=== PATIENT | male | born 1970 | race Caucasian/White ===

== ENCOUNTER → 2018-05-27 | Outpatient (CLI) | payer BC ==
--- NOTE | 2018-05-27 13:55 | US ---
EXAMINATION TYPE: US scrotum with doppler. Grayscale and color Doppler Duplex imaging performed of t aden scrotum. DATE OF EXAM: 05/27/2018 COMPARISON: NONE CLINICAL HISTORY: N44.00 Torsion of testis, unspecified. Left scrotal pain x 3 days without trauma EXAM MEASUREMENTS: TESTICLES: Right Testicle: 4.8 x 3.8 x 2.8 cm Left Testicle: 5.6 x 3.3 x 3.2 cm EPIDIDYMIS HEAD: Right Epididymis: 1.7 x1.1 x 1.0 cm Left Epididymis: 1.3 x 1.0 x 1.3 cm Doppler performed to assess for testicular vascularity; good bilateral color flow and waveforms are s een. There is no evidence of testicular torsion. Presence of hydroceles: in right scrotal sac = 3.3 x 0.7 x 1.0cm and in left scrotal sac = 3.9 x 1.6 x 1.1cm. Presence of varicoceles: no Tech findings called to Dr Mariella Chamorro at exam's end. IMPRESSION: 1. Bilateral hydroceles left greater than right.
== END ==
LOC: RADUSWWP 12:58
PROVIDERS: ATTEND Family Medicine
DX: N43.3 Hydrocele, unspecified (principal)
CPT/HCPCS: 76870; 93975

== ENCOUNTER 2020-06-22 12:37 | Observation (INO) | payer BC ==
--- NOTE | 2020-06-22 13:09 | ED ---
Chest Pain HPI - General Chief Complaint: Chest Pain Stated Complaint: chest pain Time Seen by Provider: 06/22/20 12:54 Source: patient, RN notes reviewed, old records reviewed Mode of arrival: ambulatory Limitations: no limitations - History of Present Illness Initial Comments: This is a 50-year-old male DF for evaluation presented today for evaluation regards to chest pain. No medical history no surgical history no travel history. Patient has no fevers cough or congestion. Chest pain started today patient was chest works midnight chest pain started when he went after he went to bed, was epigastric burning type pain. MD Complaint: chest pain -: hour(s) Onset: during rest, awoke with symptoms Pain Location: substernal Pain Radiation: none Severity: moderate Severity scale (1-10): 4 Quality: tightness Consistency: constant Improves With: nothing Worsens With: nothing Anginal Symptoms: nausea Other Symptoms: burping Treatments Prior to Arrival: none - Related Data Home Medications Medication Instructions Recorded Confirmed valACYclovir HCL 1,000 mg PO DAILY 06/22/20 06/22/20 Allergies Allergy/AdvReac Type Severity Reaction Status Date / Time No Known Allergies Allergy Verified 06/22/20 13:28 Review of Systems ROS Statement: Those systems with pertinent positive or pertinent negative responses have been documented in the HPI. ROS Other: All systems not noted in ROS Statement are negative. EKG Findings - EKG Comments: EKG Findings:: EKG shows sinus a rate of 68, NC 146 QRS 78 QTc 380 Past Medical History Past Medical History: No Reported History History of Any Multi-Drug Resistant Organisms: None Reported Past Surgical History: No Surgical Hx Reported Past Psychological History: No Psychological Hx Reported Smoking Status: Never smoker Past Alcohol Use History: None Reported General Exam Limitations: no limitations General appearance: alert, in no apparent distress Head exam: Present: atraumatic, normocephalic, normal inspection Eye exam: Present: normal appearance, PERRL, EOMI. Absent: scleral icterus, conjunctival injection, periorbital swelling ENT exam: Present: normal exam, mucous membranes moist Neck exam: Present: normal inspection. Absent: tenderness, meningismus, lymphadenopathy Respiratory exam: Present: normal lung sounds bilaterally. Absent: respiratory distress, wheezes, rales, rhonchi, stridor Cardiovascular Exam: Present: regular rate, normal rhythm, normal heart sounds. Absent: systolic murmur, diastolic murmur, rubs, gallop, clicks GI/Abdominal exam: Present: soft, normal bowel sounds. Absent: distended, tenderness, guarding, rebound, rigid Extremities exam: Present: normal inspection, full ROM, normal capillary refill. Absent: tenderness, pedal edema, joint swelling, calf tenderness Back exam: Present: normal inspection Neurological exam: Present: alert, oriented X3, CN II-XII intact Psychiatric exam: Present: normal affect, normal mood Skin exam: Present: warm, dry, intact, normal color. Absent: rash Course Vital Signs 06/22/20 06/22/20 06/22/20 12:44 12:54 13:00 Temperature 98.2 F Pulse Rate 74 65 75 Respiratory 20 15 15 Rate Blood Pressure 168/102 174/114 O2 Sat by Pulse 97 97 97 Oximetry 06/22/20 06/22/20 13:30 14:00 Temperature Pulse Rate 73 70 Respiratory 15 15 Rate Blood Pressure 160/117 166/110 O2 Sat by Pulse 97 97 Oximetry - Reevaluation(s) Reevaluation #1: 06/22/20 13:19 Medical records reviewed Reevaluation #2: 06/22/20 14:50 Patient has multiple EKGs done here in the ER with no change Reevaluation #3: 06/22/20 14:50 Patient does have persistent chest pain, blood pressures treated here in the ER Reevaluation #4: 06/22/20 14:50 Spoke patient regarding findings, questions answered - Consultations Consultation #1: Spoke with [facility] to admit patient he did see patient here in the ER Chest Pain MDM - MDM 50 male positive chest pain, has persistent chest pain here in the ER with elevated blood pressure. Patient be admitted for chest pain observation Critical Care Time Critical Care Time: Yes Total Critical Care Time: 31 Disposition Clinical Impression: Chest pain, Hypertension Disposition: ADMITTED IP TO THIS HOSP Condition: Fair Is patient prescribed a controlled substance at d/c from ED?: No Referrals: Mariella Chamorro DO [Primary Care Provider] - 1-2 days
[2020-06-22] MEDS ORDERED: SODIUM CHLORIDE 0.9% 1,000 ML IV STA ×2 (13:31)
[2020-06-22 13:35] LABS: Basophils # (A) 0.1 k/uL (0-0.2); Basophils % (A) 1 %; Eosinophils # (A) 0.4 k/uL (0-0.7); Eosinophils % (A) 4 %; HCT 52.2 % (39.0-53.0); HGB 17.3 gm/dL (13.0-17.5); Lymphocytes # (A) 2.7 k/uL (1.0-4.8); Lymphocytes % (A) 26 %; MCHC 33.1 g/dL (31.0-37.0); MCV 90.5 fL (80.0-100.0); Monocytes # (A) 0.6 k/uL (0-1.0); Monocytes % (A) 6 %; Neutrophils # (A) 6.3 k/uL (1.3-7.7); Neutrophils % (A) 61 %; Platelet Count 215 k/uL (150-450); RBC 5.76 m/uL (4.30-5.90); WBC 10.3 k/uL (3.8-10.6)
[2020-06-22 13:41] LABS: INR 0.9 (<1.2); Partial Thromboplastin Time 23.3 sec (22.0-30.0); Prothrombin Time 9.6 sec (9.0-12.0)
[2020-06-22 13:43] LABS: ALT 46 U/L (4-49); AST 36 U/L (17-59); African American GFR (CKD) >90 (>60 ml/min/1.73 sqM); Albumin 4.7 g/dL (3.5-5.0); Alkaline Phosphatase 101 U/L (38-126); Anion Gap 9 mmol/L; Blood Urea Nitrogen 19 mg/dL (9-20); Carbon Dioxide 22 mmol/L (22-30); Chloride 108 mmol/L (98-107); Glucose 125 mg/dL (74-99); Magnesium 2.1 mg/dL (1.6-2.3); Non-African American GFR(CKD) 84 (>60 ml/min/1.73 sqM); Potassium 4.8 mmol/L (3.5-5.1); Sodium 139 mmol/L (137-145); Total Bilirubin 0.6 mg/dL (0.2-1.3); Total Protein 7.6 g/dL (6.3-8.2)
--- NOTE | 2020-06-22 14:26 | CT ---
EXAMINATION TYPE: CT angio chest DATE OF EXAM: 06/22/2020 COMPARISON: None HISTORY: Epigastric pain with shortness of breath. CT DLP: 320.7 mGycm Automated exposure control for dose reduction was used. CONTRAST: Performed with IV Contrast, patient injected with 100 mL of Isovue 370. There are 3-D post processed images. There is some mild interstitial density and subsegmental atelectasis at the lung bases. There is no p ulmonary consolidation. Heart is borderline enlarged. There is no pericardial effusion. There is no p leural effusion. There are no hilar masses. There is no mediastinal adenopathy. Thoracic aorta is intact. There is no aneurysm. There is normal contrast opacification of the pulmonary arteries. There are no filling defects. There are bilateral bronchial lymph nodes measuring up to 1 cm. Thoracic vertebra have normal spacing and alignment. There is no compression fracture. Sternum is int act. Upper abdominal soft tissues are intact. IMPRESSION: No evidence of pulmonary embolism. Minimal subsegmental atelectasis and interstitial density at the lung bases.
[2020-06-22] MEDS ORDERED: LABETALOL 5 MG/ML VIAL MDV IVP STA (14:27)
--- NOTE | 2020-06-22 14:36 | CT ---
EXAMINATION TYPE: CT abdomen pelvis w con DATE OF EXAM: 06/22/2020 COMPARISON: HISTORY: Epigastric pain with shortness of breath. CT DLP: 992.5 mGycm Automated exposure control for dose reduction was used. CONTRAST: Performed with IV Contrast, patient injected with 100 mL of Isovue 370. There is mild subsegmental atelectasis at the lung bases. Heart is normal. There is no pericardial ef fusion. There is no pleural effusion. Liver spleen stomach pancreas gallbladder are intact. There is a single large calcified gallstone. This is at the gallbladder neck. Gallbladder is large and measure s 9.2 cm in length. There is no adrenal mass. Kidneys show satisfactory contrast opacification. There is no hydronephrosi s. Ureters are not dilated. There is 3 mm calculus posterior right kidney. Delayed images show normal renal excretion. There are small left renal parapelvic cysts. There is no retroperitoneal adenopathy . Bladder distends smoothly. There is 5.3 cm prostate. There is no mesenteric edema. There is no asci santos or free air. There is no bowel obstruction. Appendix is partly filled with air and appears normal . Lumbar vertebra have normal alignment. Bony pelvis is intact. Hip joints are intact. IMPRESSION: Large gallbladder with single large gallstone at the gallbladder neck. Cholecystitis is possible. Nor mal appendix. Nonobstructing right renal calculus.
[2020-06-22] MEDS ORDERED: NITROGLYCERIN SL TABS 0.4 MG TAB SUBLINGUAL PRN (14:44)
[2020-06-22] MEDS ORDERED: ASPIRIN 81 MG PO STA (14:44)
[2020-06-22] MEDS ORDERED: MORPHINE SULFATE 4 MG/ML SYRINGE IVP STA (14:53)
[2020-06-22] MEDS: SODIUM CHLORIDE 0.9% 1,000 ML IV SCH (15:01)
[2020-06-22] MEDS: METOPROLOL TARTRATE 50 MG TAB PO SCH (20:18)
[2020-06-22] MEDS: MORPHINE SULFATE 4 MG/ML SYRINGE IVP PRN (20:20)
--- NOTE | 2020-06-22 21:12 | P.HPIM ---
History of Present Illness this is a pleasant 50 years old male with no significant past medical history. 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 Pain felt to be central and upper stomach about 6-7/10 in severity nonradiating, felt like pressure. With no associated dyspnea or coughing or palpitation or dizziness. No vomiting or change in bowel habits or urine habits. No fever. Patient denies history of smoking, alcohol or illicit drugs. Review of Systems CONSTITUTIONAL: No fever, no malaise, no fatigue. HEENT: No recent visual problems or hearing problems. Denied any sore throat. CARDIOVASCULAR: No orthopnea, PND, no palpitations, no syncope. PULMONARY: No shortness of breath, no cough, no hemoptysis. GASTROINTESTINAL: No diarrhea, Normoactive bowel sounds. NEUROLOGICAL: No headaches, no weakness, no numbness. HEMATOLOGICAL: Denies any bleeding or petechiae. GENITOURINARY: Denies any burning micturition, frequency, or urgency. MUSCULOSKELETAL/RHEUMATOLOGICAL: Denies any joint pain, swelling, or any muscle pain. ENDOCRINE: Denies any polyuria or polydipsia. Past Medical History Past Medical History: No Reported History History of Any Multi-Drug Resistant Organisms: None Reported Past Surgical History: No Surgical Hx Reported Past Anesthesia/Blood Transfusion Reactions: No Reported Reaction Past Psychological History: No Psychological Hx Reported Smoking Status: Never smoker Past Alcohol Use History: None Reported - Past Family History Father Family Medical History: Cancer Additional Family Medical History / Comment(s): lung CA from smoking Mother Family Medical History: No Reported History Medications and Allergies Home Medications Medication Instructions Recorded Confirmed Type valACYclovir HCL 1,000 mg PO DAILY 06/22/20 06/22/20 History Allergies Allergy/AdvReac Type Severity Reaction Status Date / Time No Known Allergies Allergy Verified 06/22/20 13:28 Physical Exam Vitals: Vital Signs Temp Pulse Pulse Resp BP BP Pulse Ox 06/22/20 16:00 97.3 F L 66 20 135/93 99 06/22/20 15:48 146/99 06/22/20 15:01 152/100 06/22/20 14:47 65 18 151/99 98 06/22/20 14:00 70 15 166/110 97 06/22/20 13:30 73 15 160/117 97 06/22/20 13:00 75 15 174/114 97 06/22/20 12:54 65 15 97 06/22/20 12:44 98.2 F 74 20 168/102 97 Intake and Output 06/22/20 06/22/20 06/22/20 06:59 14:59 22:59 Intake Total 120 Balance 120 Intake: Oral 120 Other: # Voids 1 Weight 81.647 kg 81.647 kg GENERAL: The patient is alert and oriented x3, not in any acute distress. Well developed, well nourished. HEENT: Pupils are round and equally reacting to light. EOMI. No scleral icterus. No conjunctival pallor. Normocephalic, atraumatic. No pharyngeal erythema. No thyromegaly. CARDIOVASCULAR: S1 and S2 present. No murmurs, rubs, or gallops. PULMONARY: Chest is clear to auscultation, no wheezing or crackles. -ABDOMEN: Soft, epigastric tenderness, nondistended, normoactive bowel sounds. No palpable organomegaly. MUSCULOSKELETAL: No joint swelling or deformity. EXTREMITIES: No cyanosis, clubbing, or pedal edema. NEUROLOGICAL: Gross neurological examination did not reveal any focal deficits. SKIN: No rashes. No petechiae Results CBC & Chem 7: 06/22/20 13:18 06/22/20 13:18 Labs: Abnormal Lab Results - Last 24 Hours (Table) 06/22/20 Range/Units 13:18 Chloride 108 H (98-107) mmol/L Glucose 125 H (74-99) mg/dL Thrombosis Risk Factor Assmnt - Choose All That Apply Each Factor Represents 1 point: Age 41-60 years Other congenital or acquired thrombophilia - If yes, enter type in comment: No Thrombosis Risk Factor Assessment Total Risk Factor Score: 1 Thrombosis Risk Factor Assessment Level: Low Risk Assessment and Plan Assessment: Chest pain, rule out cardiac causes Gallstones with a large gallbladder 9.2 cm suspicious for cholecystitis Plan: This is a pleasant 50 years old male who presents because of chest pain. We'll do serial troponins. Cardiology consult. Continue with aspirin. Check ultrasound of the liver and call surgical consult. Keep the patient nothing by mouth with pain medication and IV fluids Labs and medication were reviewed.. Continue same treatment. Continue with symptomatic treatment. Resume home medication. Monitor lytes and vitals. DVT and GI prophylaxis. Further recommendations depends on the clinical course of the patient DVT prophylaxis: Subcutaneous heparin GI Prophylaxis: Ppi
[2020-06-22] MEDS: PANTOPRAZOLE 40 MG/10 ML VIAL IVP SCH (22:53)
[2020-06-23 07:25] LABS: Cholesterol 180 mg/dL (<200); HDL Cholesterol 49 mg/dL (40-60); LDL Cholesterol,Calculated 99 mg/dL (0-99); Triglycerides 162 mg/dL (<150)
--- NOTE | 2020-06-23 08:11 | P.GSCN ---
History of Present Illness Consult date: 06/23/20 Reason for Consult: Gallstones History of present illness: This a 50-year-old male who is admitted to the hospital for complete table chest pain. Patient was found have a large gallstone and CAT scan within his gallbladder. Patient's had complaints of intermittent epigastric right upper quadrant pain. Past Medical History Past Medical History: No Reported History History of Any Multi-Drug Resistant Organisms: None Reported Past Surgical History: No Surgical Hx Reported Past Anesthesia/Blood Transfusion Reactions: No Reported Reaction Past Psychological History: No Psychological Hx Reported Smoking Status: Never smoker Past Alcohol Use History: None Reported - Past Family History Father Family Medical History: Cancer Additional Family Medical History / Comment(s): lung CA from smoking Mother Family Medical History: No Reported History Medications and Allergies Home Medications Medication Instructions Recorded Confirmed Type valACYclovir HCL 1,000 mg PO DAILY 06/22/20 06/22/20 History Allergies Allergy/AdvReac Type Severity Reaction Status Date / Time No Known Allergies Allergy Verified 06/22/20 13:28 Surgical - Exam Vital Signs Temp Pulse Resp BP Pulse Ox 98.2 F 74 20 168/102 97 06/22/20 12:44 06/22/20 12:44 06/22/20 12:44 06/22/20 12:44 06/22/20 12:44 - General well developed, well nourished, no distress - Eyes PERRL - ENT normal pinna - Neck no masses - Respiratory normal expansion - Cardiovascular Rhythm: regular - Abdomen Abdomen: soft, non tender Results - Labs 06/22/20 13:18 06/22/20 13:18 Abnormal Lab Results - Last 24 Hours (Table) 06/22/20 06/23/20 Range/Units 13:18 06:18 Chloride 108 H (98-107) mmol/L Glucose 125 H (74-99) mg/dL Triglycerides 162 H (<150) mg/dL Diabetes panel 06/22/20 06/23/20 Range/Units 13:18 06:18 Sodium 139 (137-145) mmol/L Potassium 4.8 (3.5-5.1) mmol/L Chloride 108 H (98-107) mmol/L Carbon Dioxide 22 (22-30) mmol/L BUN 19 (9-20) mg/dL Creatinine 1.05 (0.66-1.25) mg/dL Glucose 125 H (74-99) mg/dL Calcium 10.0 (8.4-10.2) mg/dL AST 36 (17-59) U/L ALT 46 (4-49) U/L Alkaline Phosphatase 101 (38-126) U/L Total Protein 7.6 (6.3-8.2) g/dL Albumin 4.7 (3.5-5.0) g/dL Triglycerides 162 H (<150) mg/dL HDL Cholesterol 49 (40-60) mg/dL Calcium panel 06/22/20 Range/Units 13:18 Calcium 10.0 (8.4-10.2) mg/dL Albumin 4.7 (3.5-5.0) g/dL Pituitary panel 06/22/20 Range/Units 13:18 Sodium 139 (137-145) mmol/L Potassium 4.8 (3.5-5.1) mmol/L Chloride 108 H (98-107) mmol/L Carbon Dioxide 22 (22-30) mmol/L BUN 19 (9-20) mg/dL Creatinine 1.05 (0.66-1.25) mg/dL Glucose 125 H (74-99) mg/dL Calcium 10.0 (8.4-10.2) mg/dL Adrenal panel 06/22/20 Range/Units 13:18 Sodium 139 (137-145) mmol/L Potassium 4.8 (3.5-5.1) mmol/L Chloride 108 H (98-107) mmol/L Carbon Dioxide 22 (22-30) mmol/L BUN 19 (9-20) mg/dL Creatinine 1.05 (0.66-1.25) mg/dL Glucose 125 H (74-99) mg/dL Calcium 10.0 (8.4-10.2) mg/dL Total Bilirubin 0.6 (0.2-1.3) mg/dL AST 36 (17-59) U/L ALT 46 (4-49) U/L Alkaline Phosphatase 101 (38-126) U/L Total Protein 7.6 (6.3-8.2) g/dL Albumin 4.7 (3.5-5.0) g/dL Assessment and Plan Assessment: Symptomatically lithiasis. Patient was scheduled for laparoscopic cholecystectomy in the morning.
[2020-06-23] MEDS ORDERED: ASPIRIN 325 MG TAB PO SCH (09:00)
[2020-06-23] MEDS: HEPARIN SODIUM,PORCINE 5,000 UNIT/ML 1 ML VIAL SQ SCH ×2 (09:31→21:25)
[2020-06-23] MEDS: METOPROLOL TARTRATE 50 MG TAB PO SCH (09:31)
[2020-06-23] MEDS: PANTOPRAZOLE 40 MG/10 ML VIAL IVP SCH (09:31)
[2020-06-23] MEDS: MORPHINE SULFATE 4 MG/ML SYRINGE IVP PRN (09:40)
--- NOTE | 2020-06-23 10:26 | US ---
EXAMINATION TYPE: US liver DATE OF EXAM: 06/23/2020 COMPARISON: Correlation CT 06/22/2020 CLINICAL HISTORY: 50-year-old male with chest pain and abnormal CT, rule out cholecystitis . TECHNIQUE: Multiple sonographic images of the right upper quadrant are obtained. FINDINGS: EXAM MEASUREMENTS: Liver Length: 14.8 cm Gallbladder Wall: 0.2 cm CBD: 0.3 cm Right Kidney: 10.4 x 4.8 x 4.4 cm Pancreas: wnl, tail obscured by overlying bowel gas Liver: Visualized portions appeared wnl . Homogeneous appearance. Gallbladder: Distended to the upper limits of normal at 3.7 cm wide. Single, mobile gallstone= 2.0 c m, wall not thickened. No surrounding fluid. Evidence for sonographic Marrufo's sign: No CBD: wnl Right Kidney: wnl, lower pole gassed out IMPRESSION: 1. A 2.0 cm gallstone. No ancillary findings of acute cholecystitis at this time though the gallbladd er is distended to the upper limits of normal at 3.7 cm wide, probably due to fasting state. 2. No biliary ductal dilatation.
--- NOTE | 2020-06-23 10:44 | P.PN ---
Subjective this is a pleasant 50 years old male with no significant past medical history. 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 Pain felt to be central and upper stomach about 6-7/10 in severity nonradiating, felt like pressure. With no associated dyspnea or coughing or palpitation or dizziness. No vomiting or change in bowel habits or urine habits. No fever. Patient denies history of smoking, alcohol or illicit drugs. Vital signs stable. Labs include a CBC, BMP, liver enzymes, INR are unremarkable. Troponins 3 less than 0.012. Chest x-ray: No acute process. EKG showing normal sinus rhythm at [address] with no significant ST-T changes. CTA of the chest showing no pulmonary embolism, atelectasis. CT of the abdomen and pelvis with contrast: Single calcified gallstones and a large gallbladder attack 0.2 cm. 06/23/2020 Patient is awake and alert. He still have pain in the epigastric and xiphisternal area. Most likely is due to gallbladder disease rather than his heart. Cartilage team on the case Surgery team are planning for cholecystectomy tomorrow. LIKE patient is agreeable. Vitals and labs reviewed and it looks stable Objective - Vital Signs Vital signs: Vital Signs Temp 98.0 F 06/23/20 05:04 Pulse 77 06/23/20 05:04 Resp 18 06/23/20 05:04 BP 112/62 06/23/20 05:04 Pulse Ox 95 06/23/20 05:04 Intake & Output 06/22/20 06/23/20 06/23/20 18:59 06:59 18:59 Intake Total 120 540 Balance 120 540 Weight 81.647 kg 83 kg Intake: Oral 120 540 Other: Voiding Method Toilet # Voids 1 1 1 - Exam GENERAL: The patient is alert and oriented x3, not in any acute distress. Well developed, well nourished. HEENT: Pupils are round and equally reacting to light. EOMI. No scleral icterus. No conjunctival pallor. Normocephalic, atraumatic. No pharyngeal erythema. No th yromegaly. CARDIOVASCULAR: S1 and S2 present. No murmurs, rubs, or gallops. PULMONARY: Chest is clear to auscultation, no wheezing or crackles. -ABDOMEN: Soft, epigastric tenderness, nondistended, normoactive bowel sounds. No palpable organomegaly. MUSCULOSKELETAL: No joint swelling or deformity. EXTREMITIES: No cyanosis, clubbing, or pedal edema. NEUROLOGICAL: Gross neurological examination did not reveal any focal deficits. SKIN: No rashes. no petechiae. - Labs CBC & Chem 7: 06/22/20 13:18 06/22/20 13:18 Labs: Abnormal Lab Results - Last 24 Hours (Table) 06/22/20 06/23/20 Range/Units 13:18 06:18 Chloride 108 H (98-107) mmol/L Glucose 125 H (74-99) mg/dL Triglycerides 162 H (<150) mg/dL Assessment and Plan Assessment: Chest pain, mostly its epigastric pain ,very close to the xiphisternal joint, related to gall bladder disease Gallstones with a large gallbladder 9.2 cm suspicious for cholecystitis Plan: This is a pleasant 50 years old male who presents because of chest pain. We'll do serial troponins. Cardiology consult. Surgery team are planning for cholecystectomy. Continue with IV fluids Labs and medication were reviewed.. Continue same treatment. Continue with symptomatic treatment. Resume home medication. Monitor lytes and vitals. DVT and GI prophylaxis. Further recommendations depends on the clinical course of the patient DVT prophylaxis: Subcutaneous heparin GI Prophylaxis: Ppi
--- NOTE | 2020-06-23 14:02 | P.CRDCN ---
History of Present Illness History of present illness: HISTORY OF PRESENTING ILLNESS This is a pleasant 50-year-old male with no significant past medical history. We have been asked to see in consultation for chest pain. 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 He was woken up around 11:30 with an intense burning sensation in the midsternal epigastric region. The discomfort was quite intense. He took Rolaids as he felt this was a reflex reaction however he got no relief. The pain was persistent throughout the day yesterday. There was no radiation to the back, arm, neck or jaw. He denied associated shortness of breath, dizziness, palpitations, nausea, vomiting or diaphoresis. EKG reveals sinus mechanism with no acute ST or T-wave abnormalities 3. CTA is negative for pulmonary embolism, lungs are clear and normal appearing aorta. CT of the abdomen and pelvis revealed a single large gallstone. He has been seen by surgery and is scheduled to undergo cholecystectomy tomorrow. Laboratory data reviewed, cardiac enzymes negative 3, LDL 99, sodium 139, potassium 4.8, creatinine 1.05, magnesium 2.1 and CBC unremarkable. He currently takes no daily medications. Of note the patient exercises on his elliptical for 20 minutes every day and denies ever having had exertional chest pain or shortness of breath. REVIEW OF SYSTEMS At the time of my exam: CONSTITUTIONAL: Denies fever or chills. CARDIOVASCULAR: Denies chest pain, shortness of breath, orthopnea, PND or palpitations. RESPIRATORY: Denies cough. GASTROINTESTINAL: Denies abdominal pain, diarrhea, constipation, nausea or vomiting. MUSCULOSKELETAL: Denies myalgias. NEUROLOGIC: Denies numbness, tingling or weakness. ENDOCRINE: Denies fatigue, weight change, polydipsia or polyurina. GENITOURINARY: Denies burning, hematuria or urgency with micturation. HEMATOLOGIC: Denies history of anemia or bleeding. PHYSICAL EXAMINATION Blood pressure 121/80 heart rate 78 afebrile and maintaining oxygen saturation on room air. CONSTITUTIONAL: No apparent distress. HEENT: Head is normocephalic. Pupils are equal, round. Sclerae anicteric. Mucous membranes of the mouth are moist. No JVD. No carotid bruit. CHEST EXAMINATION: Lungs are clear to auscultation. No chest wall tenderness is noted on palpation or with deep breathing. HEART EXAMINATION: Regular rate and rhythm. S1, S2 heard. No murmurs, gallops or rub. ABDOMEN: Soft, nontender. Positive bowel sounds. EXTREMITIES: 2+ peripheral pulses, no lower extremity edema and no calf tenderness. NEUROLOGIC EXAMINATION: Patient is awake, alert and oriented x3. ASSESSMENT Chest pain, atypical for angina. PLAN An acute coronary event has been ruled out. Recommend proceeding with stress echocardiogram to assess her stress induced cardiac ischemia. If stress test is normal and there are no contraindications undergo surgical intervention tomorrow. Thank you kindly for this consultation. Nurse Practitioner note has been reviewed, I agree with a documented findings and plan of care. Patient was seen and examined. Past Medical History Past Medical History: No Reported History History of Any Multi-Drug Resistant Organisms: None Reported Past Surgical History: No Surgical Hx Reported Past Anesthesia/Blood Transfusion Reactions: No Reported Reaction Past Psychological History: No Psychological Hx Reported Smoking Status: Never smoker Past Alcohol Use History: None Reported - Past Family History Father Family Medical History: Cancer Additional Family Medical History / Comment(s): lung CA from smoking Mother Family Medical History: No Reported History Medications and Allergies Home Medications Medication Instructions Recorded Confirmed Type valACYclovir HCL 1,000 mg PO DAILY 06/22/20 06/22/20 History Allergies Allergy/AdvReac Type Severity Reaction Status Date / Time No Known Allergies Allergy Verified 06/22/20 13:28 Physical Exam Vitals: Vital Signs Temp Pulse Pulse Resp BP BP Pulse Ox 06/23/20 05:04 98.0 F 77 18 112/62 95 06/22/20 23:56 98.1 F 66 18 107/63 96 06/22/20 19:50 98.0 F 78 18 122/78 97 06/22/20 16:00 97.3 F L 66 20 135/93 99 06/22/20 15:48 146/99 06/22/20 15:01 152/100 06/22/20 14:47 65 18 151/99 98 06/22/20 14:00 70 15 166/110 97 06/22/20 13:30 73 15 160/117 97 06/22/20 13:00 75 15 174/114 97 06/22/20 12:54 65 15 97 06/22/20 12:44 98.2 F 74 20 168/102 97 Intake and Output 06/22/20 06/23/20 06/23/20 22:59 06:59 14:59 Intake Total 120 540 Balance 120 540 Intake: Oral 120 540 Other: Voiding Method Toilet Toilet # Voids 1 1 1 Weight 81.647 kg 83 kg Results 06/22/20 13:18 06/22/20 13:18 Cardiac Enzymes 06/22/20 06/22/20 06/22/20 Range/Units 13:18 13:18 16:28 AST 36 (17-59) U/L Troponin I <0.012 <0.012 (0.000-0.034) ng/mL 06/22/20 Range/Units 18:58 AST (17-59) U/L Troponin I <0.012 (0.000-0.034) ng/mL Coagulation 06/22/20 Range/Units 13:18 PT 9.6 (9.0-12.0) sec APTT 23.3 (22.0-30.0) sec Lipids 06/23/20 Range/Units 06:18 Triglycerides 162 H (<150) mg/dL Cholesterol 180 (<200) mg/dL HDL Cholesterol 49 (40-60) mg/dL CBC 06/22/20 Range/Units 13:18 WBC 10.3 (3.8-10.6) k/uL RBC 5.76 (4.30-5.90) m/uL Hgb 17.3 (13.0-17.5) gm/dL Hct 52.2 (39.0-53.0) % Plt Count 215 (150-450) k/uL Comprehensive Metabolic Panel 06/22/20 Range/Units 13:18 Sodium 139 (137-145) mmol/L Potassium 4.8 (3.5-5.1) mmol/L Chloride 108 H (98-107) mmol/L Carbon Dioxide 22 (22-30) mmol/L BUN 19 (9-20) mg/dL Creatinine 1.05 (0.66-1.25) mg/dL Glucose 125 H (74-99) mg/dL Calcium 10.0 (8.4-10.2) mg/dL AST 36 (17-59) U/L ALT 46 (4-49) U/L Alkaline Phosphatase 101 (38-126) U/L Total Protein 7.6 (6.3-8.2) g/dL Albumin 4.7 (3.5-5.0) g/dL Current Medications Generic Name Dose Route Start Last Admin Trade Name Adiq PRN Reason Stop Dose Admin Aspirin 325 mg 06/23/20 09:00 Aspirin 325 Mg Tab PO DAILY ALFREDO Heparin Sodium (Porcine) 5,000 unit 06/23/20 09:00 Heparin Sodium,Porcine 5,000 Unit/Ml 1 Ml Vial SQ Q12HR ALFREDO Sodium Chloride 1,000 mls @ 75 mls/hr 06/22/20 14:45 06/22/20 15:01 Saline 0.9% IV 20 mls/hr .[id number] ALFREDO Administration Metoprolol Tartrate 50 mg 06/22/20 21:00 06/22/20 20:18 Metoprolol Tartrate 50 Mg Tab PO 50 mg BID ALFREDO Administration Morphine Sulfate 4 mg 06/22/20 14:53 06/22/20 20:20 Morphine Sulfate 4 Mg/Ml Syringe IVP 4 mg Q4HR PRN Administration Pain Nitroglycerin 0.4 mg 06/22/20 14:44 Nitroglycerin Sl Tabs 0.4 Mg Tab SUBLINGUAL Q5M PRN Chest Pain Pantoprazole Sodium 40 mg 06/22/20 21:15 06/22/20 22:53 Pantoprazole 40 Mg/10 Ml Vial IVP Not Given DAILY ALFREDO Intake and Output 06/22/20 06/23/20 06/23/20 22:59 06:59 14:59 Intake Total 120 540 Balance 120 540 Intake: Oral 120 540 Other: Voiding Method Toilet Toilet # Voids 1 1 1 Weight 81.647 kg 83 kg 06/22/20 13:18 06/22/20 13:18
[2020-06-23] MEDS: SODIUM CHLORIDE 0.9% 1,000 ML IV SCH (14:13)
[2020-06-24] MEDS: SODIUM CHLORIDE 0.9% 1,000 ML IV SCH ×2 (07:04→17:18)
[2020-06-24] MEDS ORDERED: ASPIRIN 81 MG PO SCH (09:00)
[2020-06-24] MEDS ORDERED: LACTATED RINGERS 1,000 ML IV ONE (10:09)
[2020-06-24] MEDS ORDERED: ONDANSETRON 4 MG/2 ML VIAL ONE (10:16)
[2020-06-24] MEDS: HEPARIN SODIUM,PORCINE 5,000 UNIT/ML 1 ML VIAL SQ SCH (10:18)
[2020-06-24] MEDS: PANTOPRAZOLE 40 MG/10 ML VIAL IVP SCH (10:42)
[2020-06-24] MEDS ORDERED: fentaNYL (PF) 50 MCG/ML 2 ML AMP ONE (11:23)
[2020-06-24] MEDS ORDERED: HYDROmorphone (PF) 1 MG/ML ONE (11:23)
[2020-06-24] MEDS ORDERED: PROPOFOL 10 MG/ML 20 ML VIAL IV ONE (11:23)
[2020-06-24] MEDS ORDERED: NEOSTIGMINE 1 MG/ML 10 ML VIAL ONE (11:23)
[2020-06-24] MEDS ORDERED: KETOROLAC 15 MG/ML 1 ML VIAL ONE (11:23)
[2020-06-24] MEDS ORDERED: GLYCOPYRROLATE 0.2 MG/ML 2 ML VIAL ONE (11:23)
[2020-06-24] MEDS ORDERED: SUCCINYLCHOLINE CHLORIDE 100 MG/5 ML SYR IV ONE (11:23)
[2020-06-24] MEDS ORDERED: MIDAZOLAM 2 MG/2 ML VIAL ONE (11:23)
[2020-06-24] MEDS ORDERED: ROCURONIUM 10 MG/ML (10 ML VIAL) IV ONE (11:23)
[2020-06-24] MEDS ORDERED: BUPIVACAINE (PF) 0.25% 30 ML VIAL SQ ONE (11:32)
[2020-06-24] MEDS ORDERED: ceFAZolin 1,000 MG VIAL IVPB ONE (11:35)
--- NOTE | 2020-06-24 12:03 | P.OP ---
Date of Procedure: 06/24/20 Preoperative Diagnosis: Acute cholecystitis Postoperative Diagnosis: Acute cholecystitis Procedure(s) Performed: Laparoscopic cholecystectomy Anesthesia: [id number] Surgeon: Ángel Daigle Pathology: other (Gallbladder) Condition: stable Disposition: PACU Description of Procedure: The patient was placed on the operating table. The patient received a general endotracheal tube anesthesia. The patients abdomen was prepped and draped in the usual sterile fashion. Through an infraumbilical stab incision, the fascia of the anterior abdominal wall was grasped with a pair of Kochers and then the Veress needle was placed in the peritoneal cavity. Position of the Veress needle was confirmed with positive drop test. The abdomen was then insufflated. After adequate insufflation, the 10 mm trocar was placed in the peritoneal cavity. Following this the laparoscope was placed in the periton eal cavity. The patient was placed in the head-up, right side up position and then a 5 mm trocar was placed in the right lateral and right subcostal position under direct visualization. A 8 mm trocar was placed in the epigastric position. The gallbladder was grasped in the fundus and infundibulum. Traction on the gallbladder was placed in the lateral and the cephalad positions. The triangle of Calot was visualized.. The cystic duct was bluntly dissected until the union of the cystic duct and common bile duct was seen. A critical view of safety was achieved. The cystic duct was then divided and sealed with the Harmonic scissors. A PDS Endoloop was then placed throughout the cystic duct stump. The cystic artery divided and sealed with the Harmonic scissors. The gallbladder was then removed from the liver bed using Harmonic scissors. The gallbladder was then extracted through the epigastric port site. Operative field was checked for any bleeding spots and Harmonic scissors was used to coagulate the liver bed. The abdomen was irrigated. The trocars were removed. The skin was closed using interrupted 3-0 Vicryl suture. Dermabond dressing were applied. The patient tolerated the procedure well.
[2020-06-24] MEDS ORDERED: HYDROmorphone 1 MG/ML 1 ML SYRINGE IVP PRN (12:04)
--- NOTE | 2020-06-24 12:15 | P.PN ---
Subjective HISTORY OF PRESENTING ILLNESS This is a pleasant 50-year-old male with no significant past medical history. We have been asked to see in consultation for chest pain. He is seen and examined up walking in the room. He denies chest pain, shortness of breath, dizziness or palpitations. He underwent a stress echocardiogram today that was r eported as normal per the WET WHEELER. This has been communicated by her to the surgeon. Blood pressure 119/63 heart rate 75 afebrile and maintaining oxygen saturation on room air. PHYSICAL EXAMINATION Blood pressure 121/80 heart rate 78 afebrile and maintaining oxygen saturation on room air. CONSTITUTIONAL: No apparent distress. HEENT: Head is normocephalic. Pupils are equal, round. Sclerae anicteric. Mucous membranes of the mouth are moist. No JVD. No carotid bruit. CHEST EXAMINATION: Lungs are clear to auscultation. No chest wall tenderness is noted on palpation or with deep breathing. HEART EXAMINATION: Regular rate and rhythm. S1, S2 heard. No murmurs, gallops or rub. ABDOMEN: Soft, nontender. Positive bowel sounds. EXTREMITIES: 2+ peripheral pulses, no lower extremity edema and no calf t enderness. NEUROLOGIC EXAMINATION: Patient is awake, alert and oriented x3. ASSESSMENT Chest pain, atypical for angina. PLAN Stress test was negative for ischemia. Stable from a cardiac perspective. Patient going to surgery this morning. Nurse Practitioner note has been reviewed, I agree with a documented findings and plan of care. Patient was seen and examined. Objective - Vital Signs Vital signs: Vital Signs Temp 97.4 F L 06/24/20 04:00 Pulse 75 06/24/20 04:00 Resp 18 06/24/20 04:00 BP 119/63 06/24/20 04:00 Pulse Ox 96 06/24/20 04:00 Intake & Output 06/23/20 06/24/20 06/24/20 18:59 06:59 18:59 Intake Total 300 900 Balance 300 900 Weight 84.1 kg 84.1 kg Intake: Intake, IV Titration 300 900 Amount Sodium Chloride 0.9% 1, 300 900 000 ml @ 75 mls/hr IV . [id number] ALFREDO Rx#:[id number] Other: Voiding Method Toilet # Voids 2 1 1 - Labs CBC & Chem 7: 06/22/20 13:18 06/22/20 13:18
--- NOTE | 2020-06-24 13:40 | P.STRESS ---
- Stress Test Note Stress Test Results/Findings: Exam Performed: stress echo exercise Exam Date: 06/24/20 Reason for Exam: CHEST PAIN Height: 5 ft 10 in Weight: 84.1 kg Protocol: ASAD Stage: 4 Duration of Exercise: 9:30 Resting Heart Rate: 78 Resting Blood Pressure: 118/58 Maximum Achieved Heart Rate: 149 Maximum Achieved Blood Pressure: 202/76 85% PMHR: 145 100% PMHR: 171 METS: 11.1 Technologist Comment: Stress Test Results/Findings: Patient underwent exercise stress echo with a Asad protocol treadmill stress test. Patient exercised into Stage 3 for a total of 9 minutes 30 seconds reaching a total of 11.1 METS. Patient's maximum heart rate was 149 which represented 87% age-predicted maximum heart rate. Stress EKG portion: At baseline patient's EKG showed normal sinus rhythm, normal axis, no significant ST or T wave abnormalities. At peak exercise, EKG showed nondiagnostic 0.[address] depressions in the inferior lateral leads.. Stress echo portion: 2-D echocardiogram was performed in the parasternal long, personal short, apical 2 and apical four-chamber views at rest, peak exercise and in recovery. At base line, echocardiogram showed left ventricular ejection fraction 55% without wall motion abnormalities. With peak exercise, echocardiogram shows improvement in left ventricular ejection fraction, increase contractility, decrease in left ventricular dimension without wall motion abnormalities consistent with a normal response to exercise. Conclusions: 1. Normal EKG and echo response to exercise without evidence of inducible ischemia. 2. Fair exercise capacity.
--- NOTE | 2020-06-24 15:29 | P.DS ---
Providers Date of admission: 06/22/20 14:44 Expected date of discharge: 06/24/20 Attending physician: Davon Chamorro MD Consults: 06/22/20 14:44 Consult Physician Urgent Consulting Provider: Wyatt Palacios Consult Reason/Comments: cp Do you want consulting provider notified?: Yes 06/22/20 21:10 Consult Physician Urgent Consulting Provider: Ángel Daigle Consult Reason/Comments: possible cholecystitis Do you want consulting provider notified?: Yes, Notify in am Primary care physician: [facility] Course: Final Diagnoses: Chest pain, mostly epigastric secondary to gallbladder disease. Atypical for angina .Cleared by cardiology with negativestress test without evidence of inducible ischemia. Gallstones with large gallbladder, 9.2 cm, suspicious for cholecystitis, status post laparoscopic cholecystectomy Hospital course: This a 50-year-old gentleman with no significant past medical history presented with chest pain mostly epigastric.CTA of the chest showing no pulmonary embolism, atelectasis.CT of the abdomen and pelvis with contrast: Single calcified gallstones and a large gallbladder attack 0.2 cm. evaluated by cardiology and underwent stress test reported as negative and cleared for surgery. Underwent laparoscopic cholecystectomy. Tolerated procedure well. Patient will be discharged home later today pending final DC recommendations and clearance from surgery. The impression and plan of care has been dictated as directed. : I performed a history and examination of this patient, discussed the same with the dictator. I agree with the dictator's note ,documented as a scribe. Any additional findings or plans will be noted. Patient Condition at Discharge: Stable Plan - Discharge Summary Discharge Rx Participant: Yes New Discharge Prescriptions: New Docusate [Colace] 100 mg PO BID #30 capsule Hydrocodone/Acetaminophen [Fajardo 5-325] 1 tab PO Q4HR PRN 3 Days #18 tab PRN Reason: Pain Continue valACYclovir HCL 1,000 mg PO DAILY Discharge Medication List valACYclovir HCL 1,000 mg PO DAILY 06/22/20 [History] Docusate [Colace] 100 mg PO BID #30 capsule 06/24/20 [Rx] Hydrocodone/Acetaminophen [Fajardo 5-325] 1 tab PO Q4HR PRN 3 Days #18 tab 06/24/20 [Rx] Follow up Appointment(s)/Referral(s): Davon Chamorro MD [STAFF PHYSICIAN] - 1 Week Lee Cheek MD [STAFF PHYSICIAN] - 2 Weeks Ángel Daigle MD [STAFF PHYSICIAN] - 1 Week Patient Instructions/Handouts: *Sur[facility] - Laparoscopic Cholecystectomy Discharge Instructions, *[facility] - Managing Your Pain After Surgery Without Opioids Activity/Diet/Wound Care/Special Instructions: No driving while taking Fajardo No lifting over 10 pounds You may shower. No soaking or tub baths for 2 weeks Very light activity until you are reevaluated at your follow up appointment with your surgeon Diet: low fat
[2020-06-24 15:48] VITALS: TEMP 97.6
[2020-06-24 17:17] VITALS: BP 129/85; PULSE 56; RESP 17
[2020-06-24] MEDS ORDERED: HYDROcodone/APAP 5-325MG 1 EACH TAB PO STA (17:40)
--- NOTE | 2020-06-25 08:09 | ECHOS ---
Stress Test Results/Findings: Exam Performed: stress echo exercise Exam Date: 06/24/20 Reason for Exam: CHEST PAIN Height: 5 ft 10 in Weight: 84.1 kg Protocol: ASAD Stage: 4 Duration of Exercise: 9:30 Resting Heart Rate: 78 Resting Blood Pressure: 118/58 Maximum Achieved Heart Rate: 149 Maximum Achieved Blood Pressure: 202/76 85% PMHR: 145 100% PMHR: 171 METS: 11.1 Technologist Comment: Stress Test Results/Findings: Patient underwent exercise stress echo with a Asad protocol treadmill stress test. Patient exercised into Stage 3 for a total of 9 minutes 30 seconds reaching a total of 11.1 METS. Patient's maximum heart rate was 149 which represented 87% age-predicted maximum heart rate. Stress EKG portion: At baseline patient's EKG showed normal sinus rhythm, normal axis, no significant ST or T wave abnormalities. At peak exercise, EKG showed nondiagnostic 0.[address] depressions in the inferior lateral leads.. Stress echo portion: 2-D echocardiogram was performed in the parasternal long, personal short, apical 2 and apical four-chamber views at rest, peak exercise and in recovery. At baseline, echocardiogram showed left ventricular ejection fraction 55% without wall motion abnormalities. With peak exercise, echocardiogram shows improvement in left ventricular ejection fraction, increase contractility, decrease in left ventricular dimension without wall motion abnormalities consistent with a normal response to exercise. Conclusions: 1. Normal EKG and echo response to exercise without evidence of inducible ischemia. 2. Fair exercise capacity. MTDD
[2020-06-25] MEDS ORDERED: PANTOPRAZOLE 40 MG TABLET PO SCH (09:00)
== END 2020-06-24 17:46 | disposition home or self-care (01) ==
LOC: EC 12:37 → 3SCARD 14:44
PROVIDERS: ADMIT Family Medicine; ATTEND Family Medicine
DX: R07.89 Other chest pain (principal); K80.10 Calculus of gallbladder with chronic cholecystitis without obstruction; I10 Essential (primary) hypertension; Z80.1 Family history of malignant neoplasm of trachea, bronchus and lung; Z79.82 Long term (current) use of aspirin; Z79.899 Other long term (current) drug therapy
CPT/HCPCS: 96376; 96361 ×3; 93005 ×2; 96374; 96375; 99291; 36415; 93351; 88304; 83880; 80061; 80053; 83690; 83735; 84484; 85025; 85610; 85730; 76705; 71275; 74177; 47562; G0378 ×3; J2250; J2270 ×2; J1644 ×2; J2710; J2405; J0690; J3010; J1170; J1885; J0330; J2704; C9113; Q9967

== ENCOUNTER → 2020-07-31 | Outpatient (CLI) | payer BC ==
--- NOTE | 2020-07-31 16:00 | CT ---
EXAMINATION TYPE: CT abdomen pelvis wo con DATE OF EXAM: 07/31/2020 HISTORY: right flank pain CT DLP: 429.1 mGycm. Automated Exposure Control for Dose Reduction was Utilized. TECHNIQUE: CT scan of the abdomen and pelvis is performed without oral or IV contrast. COMPARISON: CT abdomen pelvis June 22, 2020 FINDINGS: Within the limitations of a non-contrast study, the following observations are made. LUNG BASES: No significant abnormality is appreciated. LIVER/GB: Cholecystectomy clips. PANCREAS: No significant abnormality is seen. SPLEEN: No significant abnormality is seen. ADRENALS: No significant abnormality is seen. KIDNEYS: There is interval passage of 4 mm right renal calculus prior studies coronal image 62 now in distal right ureter right before UVJ axial image 120 causing mild right-sided hydronephrosis on curr ent exam. There is 2 mm nonobstructing calculus mid pole level left kidney axial image 66. BOWEL: No significant abnormality is seen. GENITAL ORGANS: No gross abnormality seen. LYMPH NODES: No greater than 1cm abdominal or pelvic lymph nodes are appreciated. OSSEOUS STRUCTURES: Transitional type vertebra lumbosacral junction redemonstrated. OTHER: Small fat-containing umbilical hernia redemonstrated. IMPRESSION: There is 4 mm calculus right before right UVJ causing mild right-sided hydronephrosis on current study.
== END | disposition home or self-care (01) ==
LOC: RADCTMAIN 15:40
PROVIDERS: ATTEND Family Medicine
DX: N13.2 Hydronephrosis with renal and ureteral calculous obstruction (principal)
CPT/HCPCS: 74176

== ENCOUNTER 2021-06-12 07:17 | Day surgery (SDC) | payer BC ==
[2021-06-10 11:40] VITALS: BMI 25.8
[~2021-06-12 07:17] MED LIST: LACTATED RINGERS 1,000 ML IV SCH
[2021-06-12 07:58] VITALS: TEMP 97.8
[2021-06-12] MEDS ORDERED: LACTATED RINGERS 1,000 ML IV ONE (07:58)
[2021-06-12] MEDS ORDERED: PROPOFOL 10 MG/ML 20 ML VIAL IV ONE (08:46)
[2021-06-12] MEDS ORDERED: LIDOCAINE 1% INJ 10MG/ML (20 ML MDV) ONE (08:46)
--- NOTE | 2021-06-12 08:53 | P.GSHP ---
History of Present Illness H&P Date: 06/12/21 Chief Complaint: Screening colonoscopy This a 51-year-old male who presents today for screening colonoscopy. Patient denies a significant GI complaints. Past Medical History Past Medical History: No Reported History Additional Past Medical History / Comment(s): Hx kidney stones. History of Any Multi-Drug Resistant Organisms: None Reported Past Surgical History: Cholecystectomy Past Anesthesia/Blood Transfusion Reactions: No Reported Reaction Past Psychological History: No Psychological Hx Reported Smoking Status: Never smoker Past Alcohol Use History: None Reported Past Drug Use History: None Reported - Past Family History Father Family Medical History: Cancer Additional Family Medical History / Comment(s): "Lung cancer from smoking." Mother Family Medical History: No Reported History Medications and Allergies Home Medications Medication Instructions Recorded Confirmed Type valACYclovir HCL 1,000 mg PO DAILY 06/22/20 06/10/21 History Allergies Allergy/AdvReac Type Severity Reaction Status Date / Time No Known Allergies Allergy Verified 06/10/21 11:32 Surgical - Exam Vital Signs Temp Pulse Resp BP Pulse Ox 97.8 F 78 18 120/74 98 06/12/21 07:51 06/12/21 07:51 06/12/21 07:51 06/12/21 07:51 06/12/21 07:51 - General well developed, well nourished, no distress - Eyes PERRL - ENT normal pinna - Neck no masses - Respiratory normal expansion - Cardiovascular Rhythm: regular - Abdomen Abdomen: soft, non tender Assessment and Plan Assessment: We'll perform screening colonoscopy
--- NOTE | 2021-06-12 09:14 | P.OP ---
Date of Procedure: 06/12/21 Preoperative Diagnosis: Screening colonoscopy Postoperative Diagnosis: Normal colonoscopy Procedure(s) Performed: Colonoscopy Anesthesia: MAC Surgeon: Ángel Daigle Pathology: none sent Condition: stable Disposition: PACU Description of Procedure: Patient's placed on the endoscopy table lateral position. He received IV sedation. Digital rectal exam was performed which revealed no abnormalities. Flexible colonoscope was then placed patient anus passed throughout the colon. The scope could not be placed the cecum secured tortuosity valve. This point scope withdrawn. The remainder the ascending colon, transverse colon and descending colon appeared normal. The sigmoid colon and rectum appeared normal. Scope was withdrawn for patient.
[2021-06-12 09:16] VITALS: RESP 16
[2021-06-12 09:32] VITALS: BP 115/83; PULSE 78
== END 2021-06-12 10:03 | disposition home or self-care (01) ==
LOC: ORWHC2ENDO 07:17
PROVIDERS: ATTEND Surgery
DX: Z12.11 Encounter for screening for malignant neoplasm of colon (principal); Q43.8 Other specified congenital malformations of intestine; Z87.442 Personal history of urinary calculi; Z90.49 Acquired absence of other specified parts of digestive tract; Z80.1 Family history of malignant neoplasm of trachea, bronchus and lung; Z79.899 Other long term (current) drug therapy
CPT/HCPCS: J2001; J2704; G0121; 45378